=== PATIENT | female | born 1950 | race Caucasian/White ===

== ENCOUNTER 2025-02-25 07:52 | Emergency (ER) | payer OTHER, SELFPAY ==
[2025-02-25 07:55] VITALS: BP 150/104; PULSE 90; RESP 18; TEMP 36.9; O2SAT 95
--- NOTE | 2025-02-25 08:00 | ED.GENADUL_ITS ---
Discharge Plan Disposition Patient Disposition: Home Condition: Good Discharge Details Clinical Impression: Acute vulvovaginitis, Lichen planus Primary Care Provider: None,None ED Provider: Sandra Brown Discharge Instructions Additional Instructions: As we discussed, I am concerned that you may have developed lichen planus. This can be associated with the anti-inflammatories you been taking for your back pain such as the Advil or Aleve. I encourage that you stop these and instead transition to Tylenol or topical pain management such as lidocaine patch which is available [id number]. Please continue to encourage hydration. You may use the supplies given to you including the Wilbur bottle that will help with pain during urination. You may also use the ice packs as we discussed, ring to help with pain when sitting as well as the softer wipes when you do need to urinate. We were able to get you an appointment with [facility] immediately, you are to go from the emergency department to them for further evaluation. I have also asked our care management to contact you regarding establishment of local primary care. If he develop any new or worsening symptoms please seek care urgently once again. HPI General Date/Time Provider Initiated Documentation: 02/25/25 07:53 . Limitations to Documentation: no limitations . Information obtained by: patient and RN notes reviewed . History of Present Illness 74 year old F presents to the emergency department with the chief complaint of vulvar pain and burning with urination, described as severe, Quality is described as burning, Patient started experiencing this day(s) and it has been constant. Immobilization improves symptom(s), (legs spread, no pressure on the area) Other factors that worsen symptoms (urinating) . Patient notes no other symptoms.. Patient did receive the following treatments prior to arrival, none Related Data Allergies Allergy/AdvReac Type Severity Reaction Status Date / Time No Known Allergies Allergy Unverified 02/25/25 07:59 General Stated Complaint: Urinary ANGELA: 3 Review of Systems Constitutional Constitutional: Reports as per HPI, Denies chills, Denies fever(s) and Denies poor appetite Cardiovascular Cardiovascular: Denies chest pain Respiratory Respiratory: Denies cough Gastrointestinal Gastrointestinal: Denies abdominal pain, Denies change in bowel habits, Denies nausea and Denies vomiting Genitourinary Genitourinary: Reports as per HPI Musculoskeletal Musculoskeletal: Reports as per HPI and Denies back pain Integumentary/Breasts Skin/Breast: Reports as per HPI and Denies rash Exam Const General: cooperative, healthy appearing, comfortable, no acute distress, well developed and well groomed Nutritional Appearance: well nourished and overweight Orientation: alert and awake Resp Effort & Inspection: normal respiratory effort and no respiratory distress Cardio Rate: regular rate Rhythm: regular rhythm GI Inspection: normal to inspection Palpation: soft, not firm, no guarding, not rigid and nontender General: No CVA tenderness External Female Exam: erythema, externally tender, no external swelling and lesion (oval erosive lesions scattered along vaginal opening, well-demarcated) Bimanual Exam- Vagina & Uterus: normal palpation (slight prolapse with anterior wall falling inward) and abnormal uterine size Back/Spine/Pelvis Back: no CVA tenderness Skin Lesions: lesion noted (genital lesions) Neuro General: patient alert and patient awake Cognition: normal cognition Speech: speech normal Psych Appearance: grossly normal and well kempt Mental Status: mental status grossly normal Speech and Movement: speech and movement normal Course Vital Signs Vital signs: Vital Signs Temperature 36.9 C 02/25/25 07:55 Pulse 90 02/25/25 07:55 Respiratory Rate 18 02/25/25 07:55 Blood Pressure 150/104 H 02/25/25 07:55 Pulse Oximetry 95 02/25/25 07:55 Temperature 36.9 C 02/25/25 07:55 Temperature Source Oral 02/25/25 07:55 Pulse 90 02/25/25 07:55 Respiratory Rate 18 02/25/25 07:55 Blood Pressure 150/104 H 02/25/25 07:55 Pulse Oximetry 95 02/25/25 07:55 Oxygen Delivery Method Room Air 02/25/25 07:55 Oxygen Flow Rate 0 02/25/25 07:55 Medical Decision Making Patient is a pleasant 74-year-old female with 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 She reports that does not feel like a UTI. It is more exterior and burning with urination. She denies any new sexual contacts. She has had a partial hysterectomy, continues her ovaries. She denies any fevers or chills. No abdominal pain. She states that she can have some pressure-like sensation. However, more of the pain is externally. She does report that she has had an abscess in the groin historically associated with the access point from a catheterization. She states that she is not taking any prescribed medications at this point. Her son about a year ago and since then she has not wanted to take her medications. This is not associated with any of her ability to get the medications more that she, at this point, wants to be comfort measures only, she reports she has made this clear to her family and has advanced directives. She also denies SI/HI, feels that she has good, supportive MH with her malorie and declines any MH evaluation or assistance. She doesnot have PCP- we will ask care management to assist with this. On exam, patient appears nontoxic but appears uncomfortable with movement of the groin. She denies any pain at the moment when her legs are in a more frog-leg position and she sitting without any pressure on the lesions. Patient has 2+ distal pulses in her lower extremities. Abdomen is soft and nontender. She has no CVA tenderness. Exam of the external genitalia, which was completed with nurse in the room, was significant for well-demarcated erosive lesions. These were predominantly in the folds of the labia as well as near the vaginal opening. Patient had been reporting a pressure in the vaginal canal and did request a internal exam. I am concerned that she may have slight prolapse as she does have some anterior wall prominence but I did not visualize any exte rnally. My initial concern looking at the lesions was for potential HSV but patient denies any history of herpes simplex, no history of STI. She is not sexually active and has not been sexually active since her several years ago. She is postmenopausal. I do not appreciate any vaginal discharge, patient also denies any itching. Makes a typical vaginal pathology like BV, candidiasi s, trichomonas, less likely. However, out of abundance of caution we did send HSV testing from the lesions themselves as well as vaginal canal for vaginal pathology. I am more concerned for lichen planus given her age, that she is postmenopausal and that she is using NSAIDs routinely. I did discuss this with the patient and advised that she stop the NSAIDs and try an alternative regimen. She has been taking them for chronic back pain associated with prior accident. She is agreeable to trying acetaminophen and topical options. Went to obtain supportive therapies for her discomfort from the obstetrical asif and the gynecology team is able to see the patient this morning in the outpatient clinic. Will continue to manage the patient but do agree with the plan to try and cut back or stop the anti-inflammatories and transition to non- NSAID regimen for her chronic pain. Will hold off on any other treatment for the suspicion for lichen planus at this point, instead will defer to [facility] as they are able to see her right now. Patient will be brought via wheelchair to their department. Will also have care management assist with local primary care. Return precautions were discussed. All of her questions and concerns were addressed and she is in agreement this plan. PFSH All Active Problems (Updated 02/25/25 @ 09:11 by VALERIE Laurent) Lichen planus (Acute) Acute vulvovaginitis (Acute) Social History Smoking risk assessment performed?: No
[2025-02-25 08:21] LABS: Glucose 100 mg/dL (Negative)
[2025-02-25 08:36] LABS: C & S Indicated? No; RBC 0-2 HPF (0-2)
[2025-02-26 14:16] LABS: HSV 1 DNA Result Negative (Negative); HSV 2 DNA Result Positive (Negative)
--- NOTE | 2025-03-04 09:14 | NUR.NOTE ---
Access chart to determine the antibiotic on discharge for HSV. Result given to Allie Brown. Nursing Note:
--- NOTE | 2025-03-08 08:52 | W.ED.FU ---
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 Multiple attempts have been made to leave voicemails without being able to get in touch with the patient. I did send a prescription for acyclovir, 400 mg 3 times daily for the next 10 days to her pharmacy on file, and a letter was sent to the patient's home with her results and information on her prescription. Trice Velasco MD
--- NOTE | 2025-03-08 09:03 | NUR.NOTE ---
Letter to patient that prescription was sent to [id number] in [facility]. Unable to reach by phone. Nursing Note:
== END 2025-02-25 09:24 | disposition home or self-care (01) ==
PROVIDERS: Emergency Provider Physician Assistant
DX: N76.0 Acute vaginitis; L43.9 Lichen planus, unspecified
CPT/HCPCS: 99283 ×2; 87529; 81003; 81015; 87480; 87510; 87660

== ENCOUNTER 2025-02-25 11:23 | Outpatient (REF) | payer OTHER, SELFPAY | END 2025-02-25 11:24 | disposition home or self-care (01) | LOC: LBN 11:23 | PROVIDERS: Visit Provider Obstetrics & Gynecology | DX: N94.9 Unspecified condition associated with female genital organs and menstrual cycle (principal); L43.9 Lichen planus, unspecified | CPT/HCPCS: 87480; 87510; 87660 ==